=== PATIENT | female | born 1990 | race African-American/Black ===

== ENCOUNTER 2017-06-27 12:59 | Emergency (ER) | payer MEDICAID, OTHER ==
[~2017-06-27] VITALS: Ht 162.6 cm; Wt 72.6 kg
[~2017-06-27 12:59] MED LIST: AMOXICILLIN500 MG ORAL; ANUSOL-HC25 MG RECTAL; ATARAX25 MG ORAL; BACTRIM DS TAB1 EAC1 ORAL; BENADRYL25 MG ORAL; CIPROFLOXACIN500 M2 ORAL; COLACE100 MG ORAL; DEPO-PROVE150 MG/11 IM; FLAGYL500 MG ORAL; KEFLEX500 MG ORAL; KEFLEX500 MG PO; LANOLIN TP; LOMOTIL TABLET1 EAC1 PO; NKM; NORCO 5-325 TA1 EACH ORAL; PEPCID40 MG PO; PRENATAL VITAM1 EAC4 PO; RANITIDINE HCL150 MG ORAL; REGLAN10 MG ORAL; TRAMADOL HCL50 MG ORAL; ZOFRAN4 MG PO
[2017-06-27 13:03] VITALS: BP 118/62
[2017-06-27 13:45] LABS: APPEARANCE,URINE SLIGHTLY CLOUDY; BILIRUBIN, URINE NEGATIVE (NEGATIVE); COLOR,URINE PALE YELLOW; GLUCOSE, URINE (UA) NEGATIVE (NEGATIVE); KETONES,URINE NEGATIVE (NEGATIVE); LEUKOCYTE ESTERASE ,URINE 3+ (NEGATIVE); NITRITE,URINE NEGATIVE (NEGATIVE); PH,URINE 6.5 (4.5-8.0); PROTEIN,URINE NEGATIVE (NEGATIVE); UROBILINOGEN,URINE NORMAL MG/DL (0.0-1.0)
[2017-06-27] MEDS ORDERED: Azithromycin 250mg tab ORAL ONE (14:00)
[2017-06-27] MEDS ORDERED: Lidocaine 1% MPF 10mg/ml 5ml INJ ONE (14:00)
--- NOTE | 2017-06-27 14:01 | Emergency Room Report ---
History of Present Illness General Chief Complaint: Vaginal Source: Patient Present Illness HPI 26-year-old female, no significant past medical history, presenting with vaginal discharge. Patient was seen by , had tests done to rule out "yeast infection", was given a pill to take for yeast infection. Stated that she still had some vaginal discomfort, was then given Flagyl which she can be treated. Complaining of burning on urination, white vaginal discharge, no vaginal bleeding. No fever no chills. No abdominal pain States that she is unsure if she could have contracted an STD Allergies: Coded Allergies: No Known Allergies (Unverified , 05/19/12) Patient History Past Medical History: see triage record Past Surgical History: none Pertinent Family History: none Last Menstrual Period: Two weeks ago Now: No Reviewed Nursing Documentation: PMH: Agreed, PSxH: Agreed Nursing Documentation-PMH Past Medical History: No Stated History Hx Gastrointestinal Problems: Yes - gerd ,hemorrhoids Review of Systems All Other Systems: negative except mentioned in HPI Physical Exam Vital Signs Date Time Temp Pulse Resp B/P (MAP) Pulse Ox O2 Delivery O2 Flow Rate FiO2 06/27/17 13:03 98.9 86 16 118/62 97 Room Air 99.0 Sp02 EP Interpretation: reviewed, normal General Appearance: normal inspection, well appearing, no apparent distress, alert, GCS 15, non-toxic Head: normocephalic, atraumatic Eyes: bilateral eye normal inspection, bilateral eye PERRL, bilateral eye EOMI ENT: normal ENT inspection, normal pharynx, normal voice, moist mucus membranes Neck: normal inspection, full range of motion, supple Respiratory: normal inspection, lungs clear, normal breath sounds, no respiratory distress, no retraction, no wheezing, speaking full sentences, chest symmetrical Cardiovascular #1: normal inspection, regular rate, rhythm, no edema, normal capillary refill Cardiovascular #2: 2+ radial (R), 2+ radial (L) Gastrointestinal: normal inspection, non tender, soft, non-distended, no guarding Genitourinary: other - White vaginal discharge, cervical erythema, slight CMT, no adnexal tenderness Musculoskeletal: normal inspection, back normal, normal range of motion, non- tender Neurologic: normal inspection, alert, oriented x3, responsive, motor strength/ tone normal, sensory intact, normal gait, speech normal Psychiatric: normal inspection, judgement/insight normal, memory normal Skin: normal inspection, normal color, no rash, warm/dry, well hydrated, normal turgor Medical Decision Making Diagnostic Impression: Primary Impression: Concern about STD in female without diagnosis ER Course 26-year-old female with vaginal discharge DDX: Already treated for a yeast infection and completed a course of Flagyl Possible STD Plan: Empirically treat for a STD, UA ER course: Patient has remained stable during ED stay. UA is negative Given ceftriaxone and azithromycin Disposition: Patient is to be discharged to home. Patient was told to have protected sex, told that we do not test for STDs in the emergency room, we'll have to get retested at primary care doctor's office after treatment Strict return precautions discussed with patient such as fever, chills, worsening/severe abdominal pain, SOB, nausea, vomiting, which may indicate severe illness. Patient verbalizes understanding and agrees with plan. Please note that this Emergency Department Report was dictated using [employer] technology software, occasionally this can lead to erroneous entry secondary to interpretation by the dictation equipment Laboratory Tests Test 06/27/17 13:25 Urine Color Pale yellow Urine Appearance Slightly cloudy Urine pH 6.5 (4.5-8.0) Urine Specific [place] 1.015 (1.005-1.035) Urine Protein Negative (NEGATIVE) Urine Glucose (UA) Negative (NEGATIVE) Urine Ketones Negative (NEGATIVE) Urine Occult Blood Negative (NEGATIVE) Urine Nitrite Negative (NEGATIVE) Urine Bilirubin Negative (NEGATIVE) Urine Urobilinogen Normal MG/DL (0.0-1.0) Urine Leukocyte Esterase 3+ (NEGATIVE) H Urine RBC 0-2 /HPF (0 - 2) Urine WBC 15-20 /HPF (0 - 2) H Urine Squamous Epithelial Cells Moderate /LPF (NONE/OCC) H Urine Bacteria Many /HPF (NONE) H Urine HCG, Qualitative Negative Last Vital Signs Date Time Temp Pulse Resp B/P (MAP) Pulse Ox O2 Delivery O2 Flow Rate FiO2 06/27/17 13:03 98.9 86 16 118/62 97 Room Air 99.0 Disposition: HOME, SELF-CARE Condition: Improved Patient Instructions: Sexually Transmitted Disease, [id number] Additional Instructions: PLEASE FOLLOW UP WITH YOUR DOCTOR IN 1 WEEK Lula Davison M.D. Jun 27, 2017 14:01
[2017-06-27] MEDS ORDERED: NITROFURANTOIN100 M2 ORAL (14:02)
== END 2017-06-27 14:15 | disposition home or self-care (01) ==
LOC: EMR 14:00
DX: N89.8 Other specified noninflammatory disorders of vagina (principal); K21.9 Gastro-esophageal reflux disease without esophagitis
CPT/HCPCS: 81003; 81025; 87086; 96372; 99284; J0696; Q0144

== ENCOUNTER 2018-12-02 23:08 | Emergency (ER) | payer MEDICAID ==
[~2018-12-02] VITALS: Ht 162.6 cm; Wt 73.0 kg
[~2018-12-02 23:08] MED LIST changes: +NITROFURANTOIN100 M2 ORAL
--- NOTE | 2018-12-02 23:26 | NUR ---
ED Nurse Note: pt walked in c/o rash and itching sensation on face and vaginal area with thick greenish discharge with foul odor for couple of days, pt admits to having nonprotective sex, one partner but doesn't know if the other partner is + for STD. noted foul odor with thick green discharge, will cont monitor
[2018-12-02 23:34] VITALS: BP 106/67
[2018-12-02 23:38] LABS: BILIRUBIN, URINE NEGATIVE (NEGATIVE); GLUCOSE, URINE (UA) NEGATIVE (NEGATIVE); KETONES,URINE 1+ (NEGATIVE); LEUKOCYTE ESTERASE ,URINE 3+ (NEGATIVE); NITRITE,URINE NEGATIVE (NEGATIVE); PH,URINE 6 (4.5-8.0); PROTEIN,URINE 1+ (NEGATIVE); UROBILINOGEN,URINE 1 MG/DL (0.0-1.0)
--- NOTE | 2018-12-02 23:39 | Emergency Room Report ---
History of Present Illness General Chief Complaint: Female Urogenital Problems Source: Patient Present Illness [facility] This is a 27-year-old female with no past medical history. She presents with chief complaint of vaginal discharge. Onset for about a week. Also with itching. Color is greenish. She is sexually active without protection. No history of STD. No dysuria frequency. No hematuria. No vaginal bleeding. Allergies: Coded Allergies: No Known Allergies (Unverified , 05/19/12) Patient History Past Medical History: none, see triage record, old chart reviewed Past Surgical History: none Pertinent Family History: none Social History: Denies: smoking Last Menstrual Period: 11/24/18 Now: No Immunizations: other Reviewed Nursing Documentation: PMH: Agreed; PSxH: Agreed Nursing Documentation-PMH Past Medical History: No Stated History Hx Gastrointestinal Problems: Yes - gerd ,hemorrhoids Review of Systems Eye: Denies: eye pain, blurred vision ENT: Denies: ear pain, nose congestion, throat swelling Respiratory: Denies: cough, shortness of breath Cardiovascular: Denies: chest pain, palpitations Gastrointestinal: Denies: abdominal pain, diarrhea, nausea, vomiting Genitourinary: Reports: discharge Musculoskeletal: Denies: back pain, joint pain Skin: Denies: rash Neurological: Denies: headache, numbness Endocrine: Denies: increased thirst, increased urine Hematologic/Lymphatic: Denies: easy bruising All Other Systems: negative except mentioned in HPI Physical Exam Vital Signs Date Time Temp Pulse Resp B/P (MAP) Pulse Ox O2 Delivery O2 Flow Rate FiO2 12/02/18 23:12 98.2 85 16 106/67 (80) 97 Room Air Vitals normal Sp02 EP Interpretation: reviewed, normal General Appearance: well appearing, no apparent distress, alert Head: normocephalic, atraumatic Eyes: bilateral eye PERRL, bilateral eye EOMI ENT: hearing grossly normal, normal pharynx Neck: full range of motion, supple, no meningismus Respiratory: chest non-tender, lungs clear, normal breath sounds Cardiovascular #1: regular rate, rhythm, no murmur Gastrointestinal: normal bowel sounds, non tender, no mass, no organomegaly, no bruit, non-distended Genitourinary: no CVA tenderness, adnexa normal, cervix normal, other - Pelvic done with female nurse as lock expert. External exam normal. She has greenish discharge. No cervical motion tenderness. Musculoskeletal: back normal, gait/station normal, normal range of motion Psychiatric: mood/affect normal Medical Decision Making Diagnostic Impression: Primary Impression: Cervicitis, acute, non-specific Additional Impression: Candidiasis of vagina ER Course Presents with a greenish discharge. This may be cervicitis for gonorrhea/ chlamydia. She was given antibiotics for this. She also has a yeast infection so we will put her on 10. Urine is equivocal for UTI. This may be secondary to the discharge. She was given Rocephin and azithromycin in the ER. Will wait for urine culture. Last Vital Signs Date Time Temp Pulse Resp B/P (MAP) Pulse Ox O2 Delivery O2 Flow Rate FiO2 12/02/18 23:34 98.2 80 16 106/67 97 Room Air Status: improved Disposition: HOME, SELF-CARE Condition: Stable Scripts Fluconazole (FLUCONAZOLE) 100 Mg Tablet 100 MG ORAL DAILY, #7 TAB 0 Refills Prov: Jay Connelly MD 12/03/18 Patient Instructions: Vaginal Yeast Infection, Adult, Vaginitis Additional Instructions: Have your partner treated also. Follow-up with your doctor 7 days. Recommend outpatient testing for HIV, hepatitis, syphilis, and other STDs. Return if symptoms worsen. Jay Connelly MD Dec 02, 2018 23:39
[2018-12-02] MEDS ORDERED: Azithromycin 250mg tab ORAL ONE (23:45)
[2018-12-02] MEDS ORDERED: Lidocaine 1% MPF 10mg/ml 5ml INJ ONE (23:45)
[2018-12-02 23:55] LABS: APPEARANCE,URINE CLOUDY; COLOR,URINE YELLOW
[2018-12-03] MEDS ORDERED: FLUCONAZOLE100 MG ORAL (00:06)
[2018-12-03 00:10] VITALS: BP 110/62
--- NOTE | 2018-12-03 00:10 | NUR ---
ED Nurse Note: pt cleared to be d/c per ERMD, pt discharge and aftercare instruction w/ prescription given, pt advised to follow up with pcp/ STD clinic or return to ed if changes in condition, vss, ambultory w/ steady gait, pt advised to have protective sexual activity, advised both partner and pt to be tested for STD/HIV. pt verbalized understanding and agrees with plan, education done, left w/ all belongings.
== END 2018-12-03 00:10 | disposition home or self-care (01) ==
LOC: EMR 23:42
DX: N72 Inflammatory disease of cervix uteri (principal); B37.3 Candidiasis of vulva and vagina; K21.9 Gastro-esophageal reflux disease without esophagitis
CPT/HCPCS: 81003; 81025; 87086; 87210; 96372; 99283; J0696; Q0144